=== PATIENT | female | born 1955 | race Caucasian/White ===

== ENCOUNTER 2022-05-28 10:26 | Outpatient (CLI) | payer MEDICARE, SELFPAY | END 2022-05-28 10:27 | disposition home or self-care (01) | PROVIDERS: PCP Nurse Practitioner Family; Visit Provider Nurse Practitioner Family | DX: Z00.00 Encounter for general adult medical examination without abnormal findings (principal); R53.83 Other fatigue; I10 Essential (primary) hypertension; Z12.11 Encounter for screening for malignant neoplasm of colon | CPT/HCPCS: 80053; 82607 ==

== ENCOUNTER 2023-06-09 13:04 | Outpatient (CLI) | payer MEDICARE, SELFPAY ==
--- NOTE | 2023-06-09 13:30 | XR_ITS ---
Patient: ZACH CHU Facility:?[facility] Patient ID:?[id number] Site Patient ID:?[id number]. Site :?[id number] Study:?DEXA-Bone Density DEXA - SPINE/HIPS-06/09/2023 1:58:35 PM Ordering Physician:MARIELA Final Report: DXA BONE MINERAL DENSITY STUDY Reason for exam: Screening. Current height (in): 63.0. Weight (lb): 198.0. Menopause age: 54. Ethnicity: White. 1. Have you had a previous hip or vertebral fracture? No. 2. Have you had any fractures during your adult life which did not result from significant trauma (e.g., auto accident)? No. 3. Did either of your parents have a hip fracture? No. 4. Do you smoke? Yes. 5. Have you ever taken Glucocorticoids? No. 6. Do you have rheumatoid arthritis? No. 7. Do you have secondary osteoporosis? No. 8. Do you drink 3 or more alcoholic drinks per day? No. 9. Are you being treated for osteoporosis? No. 10. Have you ever taken any of the following medications: Actonel, Evista, Fosamax, Miacalcin, Reclast, Boniva, Forteo, HRT (i.e. estrogen/hormone therapy), Protelos, Prolia, Vitamin D, Calcium, other ? please specify. ANSWER: Yes, vitamin D, calcium. 11. Do you have any of the following medical conditions: Anorexia or bulimia, asthma or emphysema, end stage renal disease, hyperparathyroidism, any seizure disorders, cancer, inflammatory bowel diseases, hysterectomy, other ? please specify. ANSWER: No. 12. What was your maximum height (inches)? 63. 13. Do you perform weight bearing exercise regularly? Yes. 14. Do you regularly consume dairy products? Yes. 15. Do you drink caffeinated beverages? Yes. 16. At what age did your period start? 13. 17. Are you premenopausal? No. 18. How many full term pregnancies have you had? 3. 19. Have you ever missed your period for more than 6 months in a row (not including or menopause)? No. TECHNIQUE: Bone mineral density study was performed using the [employer]. FINDINGS: The results of the study expressed as bone mineral density (BMD) are as follows: Lumbar spine L1 to L4: BMD: 0.941 g/cm2. T-score: -1.0. Z-score: 0.9. Neck Left: BMD: 0.669 g/cm2. T-score: -1.6. Z-score: -0.0. Right: BMD: 0.694 g/cm2. T-score: -1.4. Z-score: 0.2. Total Left: BMD: 0.893 g/cm2. T-score: -0.4. Z-score: 0.9. Right: BMD: 0.901 g/cm2. T-score: -0.3. Z-score: 1.0. IMPRESSION: Osteopenia. FRAX 10-year Fracture Risk Major Osteoporotic Fracture: <0.1 percent Hip Fracture: <0.1 percent Reported Risk Factors: Smoking US () Neck BMD=0.669, BMI=35.1 DEE BROWN M.D. SI:[facility]& [email or web address] be/Dictated by: Dee Brown MD @ 06/10/2023 8:10:00 AM Signed by:?Dee Brown MD @06/11/2023 10:10:51 AM (Electronic Signature)
== END 2023-06-09 13:05 | disposition home or self-care (01) ==
LOC: RAD 13:06
PROVIDERS: PCP Nurse Practitioner Family; Visit Provider Nurse Practitioner Family
DX: Z13.820 Encounter for screening for osteoporosis (principal); M85.88 Other specified disorders of bone density and structure, other site
CPT/HCPCS: 77080

== ENCOUNTER 2023-10-05 15:59 | Outpatient (CLI) | payer MEDICARE, SELFPAY ==
--- NOTE | 2023-10-05 16:20 | CRLHL7_ITS ---
For Patients: As a result of the Century Cures Act, medical imaging exams and procedure reports are released immediately into your electronic medical record. You may view this report before your referring provider. If you have questions, please contact your health care provider. BILATERAL SCREENING MAMMOGRAM WITH COMPUTER-AIDED DETECTION AND TOMOSYNTHESIS TECHNIQUE: CC and MLO views were obtained. These mammographic images have been obtained using full-field digital technique. These mammographic images were interpreted with the benefit of computer-aided detection. Breast tomosynthesis was used in this interpretation. COMPARISON FILM: 08/07/22. FINDINGS: The breasts are heterogeneously dense, which may obscure small masses. IMPRESSION: There is no radiographic evidence for malignancy. ASSESSMENT: BI-RADS Category 2: Benign RECOMMENDATION: Routine screening mammogram in 1 year. A lay language report of this examination will be provided to the patient. JORGE HERRING M.D. Diagnostic Radiologist [email or web address] Transcribed: 2:[address]/Dictated by: Jorge Herring MD @ 10/06/2023 11:34:00 AM (Electronically Signed)
== END 2023-10-05 16:00 | disposition home or self-care (01) ==
LOC: MAMMO 16:00
PROVIDERS: PCP Nurse Practitioner Family; Visit Provider Nurse Practitioner Family
DX: Z12.31 Encounter for screening mammogram for malignant neoplasm of breast (principal); R92.2 Inconclusive mammogram
CPT/HCPCS: 77063; 77067

== ENCOUNTER 2023-12-19 05:51 | Emergency (ER) | payer MEDICARE, SELFPAY ==
[2023-12-19] VITALS (14 sets, daily range): BP systolic 143–193; BP diastolic 63–115; PULSE 89–105; RESP 30; TEMP 36.6; O2SAT 78–100; BMI 36.3
--- NOTE | 2023-12-19 06:12 | ED_ITS ---
HPI - General Adult General Chief complaint: Shortness of Breath/Dyspnea Stated complaint: difficulty breathing Time Seen by Provider: 12/19/23 06:11 History of Present Illness HPI narrative: Patient reports shortness of breath worsening since . Denies known ill contacts. She did attend a wedding last weekend though. Notes COPD hx but not on any meds/oxygen. Has an inhaler at home which she last took yesterday morning. Patient denies swelling to extremities, no pain anywhere. 68-year-old woman presenting to the emergency department with increasing shortness of breath. This has been developing over the last 3 days or so. She does possibly have some prior mental allergies but underlying diagnosis of COPD. Sounds like has an [id number] inhaler or possibly albuterol? She is not having any pleuritic pain. No fever. Possible exposures included attending a wedding last week. History of tobacco use. Notes it has been years since she had a problem and sounds like that is why she does not have regular medication? Related Data Previous Rx's ?Medication ?Instructions ?Recorded bisoprolol 5 1 tab PO DAILY #90 tabs 05/27/23 mg-hydrochlorothiazide 6.25 mg tablet lisinopril 20 mg tablet 20 mg PO DAILY #90 tabs 05/27/23 albuterol sulfate 90 mcg/actuation 2 inh inhalation Q2-3H #6.7 grams 12/19/23 aerosol inhaler ipratropium 0.5 mg-albuterol 3 mg 3 ml inhalation QID PRN #90 mL 12/19/23 (2.5 mg base)/3 mL nebulization soln prednisone 20 mg tablet 40 mg (2 x 20 mg) PO DAILY 5 days 12/19/23 #10 tabs Allergies Allergy/AdvReac Type Severity Reaction Status Date / Time Sulfa (Sulfonamide Allergy Severe short of Verified 12/19/23 06:00 Antibiotics) breath Review of Systems Status of ROS: Reports: 6 or more systems reviewed and unremarkable except as noted in History and below [facility] Medical History Tobacco use (10/18/08) ?Z72.0 - Tobacco use (ICD-10) Gastroesophageal reflux (10/18/08) ?K21.9 - Gastro-esophageal reflux disease without esophagitis (ICD-10) Family History Other Breast cancer Social History Narrative: Tobacco use Smoking Status: Current some day smoker What tobacco products do you use: cigars Do you use any of these nicotine containing products: None Second hand tobacco smoke exposure: No How often do you have a drink containing alcohol: monthly or less How often do you have six or more drinks on one occasion: Never AUDIT-C Alcohol total score: 1 Non-prescribed substance use: denies use Little interest or pleasure in doing things: not at all Feeling down, depressed, or hopeless: not at all Exam Narrative: Exam Narrative: Pleasant. Tachypneic and mildly labored in her breathing. Arrived oxygenating apparently 78% on room air and initiated on OxyMask. Is mildly breathless in conversation. Lower extremities are with mild dependent nonpitting edema. Skin is warm and dry. Lungs with diminished breath sounds but with trace and expiratory an end inspiratory wheeze. Heart is in regular rhythm and an elevated rate. Const: Vital Signs, click to edit/add: Vital Signs - 24 hr 12/19/23 06:00 12/19/23 06:11 12/19/23 06:11 Temperature 98 F Pulse Rate [Pulse Oximeter] 92 Respiratory Rate 30 H Blood Pressure [Ri ght Upper Arm] 193/87 H Pulse Oximetry 78 L 94 94 Oxygen Delivery Me thod Room Air OxyMask Oxygen Flow Rate 2 Documenting provider has reviewed patient's vital signs: yes Course Vital Signs Vital signs: Initial Vital Signs Temperature 98 F 12/19/23 06:00 Temperature Source Temporal Artery Scan 12/19/23 06:00 Pulse Rate 92 12/19/23 06:00 Respiratory Rate 30 H 12/19/23 06:00 Blood Pressure 193/87 H 12/19/23 06:00 Blood Pressure Mean 122 H 12/19/23 06:00 Blood Pressure Position High-Fowlers 12/19/23 06:00 Pulse Oximetry 78 L 12/19/23 06:00 Oxygen Delivery Method Room Air 12/19/23 06:00 Vital Signs Temperature 98 F 12/19/23 06:00 Pulse Rate 92 12/19/23 06:00 Respiratory Rate 30 H 12/19/23 06:00 Blood Pressure 193/87 H 12/19/23 06:00 Pulse Oximetry 78 L 12/19/23 06:00 Oxygen Delivery Method Room Air 12/19/23 06:00 Temperature 98 F 12/19/23 06:00 Pulse Rate 89 12/19/23 07:45 Respiratory Rate 30 H 12/19/23 06:00 Blood Pressure 159/63 H 12/19/23 07:33 Pulse Oximetry 88 12/19/23 07:45 Oxygen Delivery Method OxyMask 12/19/23 06:11 Oxygen Flow Rate 2 12/19/23 06:11 Medications Administered Medications: Discontinued Medications Generic Name Dose Route Start Last Admin Trade Name Bradq PRN Reason Stop Dose Admin Albuterol/Ipratropium 1 neb 12/19/23 06:15 12/19/23 06:24 Iprat-Albut 0.5-2.5 Mg/3 Ml Neb IH 12/19/23 06:16 1 neb ONCE ONE Administration Medical Decision Making MDM Narrative Medical decision making narrative: Would appear to be having exacerbation of already diagnosed COPD. Does not sound is though treatment is optimized at this time. With recent exposure potential at wedding would check for COVID/influenza and chest x-ray looking for secondary pneumonia as it has been a very long time she says since she has had any difficulty or exacerbation. Does not have a history of heart failure. Given also a DuoNeb. Following this she does feel quite a bit better. Maintaining oxygen saturations above 90% on room air. Feel she can return home. Does have nebulizer available. Chest x-ray reviewed by me looks to be without acute airspace disease, no pneumothorax. Radiology over-read as below Two view chest. X-ray Comparison chest 11/22/2017 report not available FINDINGS: Normal cardiac and mediastinal silhouette. Possible tiny nodule/granulomas overall this does not appear significantly changed from 2018. No acute airspace or interstitial process no effusion. No pneumothorax. See patient discharge plan for further discussion Lab Data Lab results reviewed: Yes I reviewed the patient's lab results Labs: Lab Results 12/19/23 Range/Units 06:12 SARS-CoV-2 (PCR) Negative SARS-CoV-2 (Negative) Influenza Type A (PCR) Negative PCR FLU A (Negative) Influenza Type B (PCR) Negative PCR FLU B (Negative) RSV (PCR) Negative PCR RSV (Negative) Discharge Plan Discharge Clinical Impression: Acute exacerbation of chronic obstructive pulmonary disease Patient Disposition: Home, Self-Care Condition: Improved Additional Instructions: Please take this tubing with you to use with your nebulizer. Prescribing DuoNebs for regular use over the next few days. I would do a nebulization 4 times a day over the next 2 days. Can use then albuterol inhaler for breakthrough. This should be used with a spacer if possible. If you have allergies that you think might be contributing to these symptoms, would be a good idea to treat them. Perhaps something like loratadine daily through the fall? Prescriptions: New albuterol sulfate 90 mcg/actuation HFA aerosol inhaler 2 inh inhalation Q2-3H Qty: 6.7 1RF Rx Instructions: Use with spacer prednisone 20 mg tablet 40 mg PO DAILY 5 Days Qty: 10 1RF ipratropium-albuterol 0.5 mg-3 mg(2.5 mg base)/3 mL solution for nebulization 3 ml inhalation QID PRNQty: 90 1RF No Action bisoprolol-hydrochlorothiazide 5-6.25 mg tablet 1 tab PO DAILY Qty: 90 3RF lisinopril 20 mg tablet 20 mg PO DAILY Qty: 90 3RF Follow Up/Referrals: Elizabeth Calero [facility] CHIEF [Primary Care Provider] - Stand Alone Forms: [facility] Info Instructions
[2023-12-19] MEDS: IPRAT-ALBUT 0.5-2.5 MG/3 ML NEB 1 NEB IH (06:24)
[2023-12-19 06:51] LABS: PCR FLU A Negative PCR FLU A (Negative); PCR FLU B Negative PCR FLU B (Negative); PCR RSV Negative PCR RSV (Negative); SARS PCR* Negative SARS-CoV-2 (Negative)
--- NOTE | 2023-12-19 07:16 | CRLHL7_ITS ---
For Patients: As a result of the Cures Act, medical imaging exams and procedure reports are released immediately into your electronic medical record. You may view this report before your referring provider. If you have questions, please contact your health care provider. INDICATION: Hypoxia TECHNIQUE: Two view chest. X-ray Comparison chest 11/22/2017 report not available FINDINGS: Normal cardiac and mediastinal silhouette. Possible tiny nodule/granulomas overall this does not appear significantly changed from 2018. No acute airspace or interstitial process no effusion. No pneumothorax. Dictated by Miriam Paez MD @ 12/19/2023 7:48:15 AM (Electronically Signed)
== END 2023-12-19 08:20 | disposition home or self-care (01) ==
PROVIDERS: Emergency Provider Family Medicine; PCP Nurse Practitioner Family
DX: J44.1 Chronic obstructive pulmonary disease with (acute) exacerbation (principal)
CPT/HCPCS: 71046; 87631; 94640; 94761; 99284